=== PATIENT | female | born 1925 | race Caucasian/White ===

== ENCOUNTER 2016-05-29 07:17 | Emergency (ER) | payer MEDICARE, OTHER ==
[2016-05-29] MEDS ORDERED: Sodium Chloride 0.9% 10 ML Syringe FLUSH PRN (07:33)
[2016-05-29] MEDS ORDERED: Sodium Chloride 0.9% 500 ML IV SCH ×2 (07:45→09:15)
[2016-05-29 07:54] LABS: BASOPHILS PERCENT AUTO 0.6 % (0.2-1.2); EOSINOPHILS PERCENT AUTO 1.2 % (0.0-4.0); HEMATOCRIT 32.2 % (33.0-47.0); HEMOGLOBIN 8.9 g/dL (12.0-16.0); LYMPHOCYTES PERCENT AUTO 17.1 % (25.0-50.0); MEAN CORPUSCULAR HGB CONC 27.6 g/dL (32.0-36.0); MEAN CORPUSCULAR VOLUME 90.4 fL (78.0-93.0); NEUTROPHILS PERCENT AUTO 62.8 % (50.0-80.0); RDW CV 18.7 % (10.0-15.0); RED BLOOD CELL COUNT 3.56 x10^6/uL (4.00-5.50)
--- NOTE | 2016-05-29 08:18 | EDM.PDOC ---
ED HISTORY OF PRESENT ILLNESS - General Chief Complaint: Respiratory Problem Stated Complaint: decreased oxygen saturation Time Seen by Provider: 05/29/16 07:20 Source of Information: Reports: Patient, EMS, senior living records History Limitations: Reports: Altered mental status - History of Present Illness INITIAL COMMENTS - FREE TEXT/NARRATIVE: Patient arrives via EMS due to oxygen saturations in the 60's on 2 Liters at the [facility]. Placed on 5L and began to have saturations in the 90' s. She does have long medical history including HTN, dementia, anemia, atherosclerotic heart disease, heart failure(diastolic), hyperlipidemia, depression, atrial fibrillation, CERD, hypokalemia, pulmonary embolism. She denies feeling short of breath. History is difficult due to her being hard of hearing and confused due to her dementia/alzheimer's. She denies chest pain, abdominal pain, nausea or vomiting, no fever or chills. She is a do not resuscitate, and doctors with Dr. Fenton at [facility]. Denies alcohol, drug and tobacco use. senior living also reports increased confusion over the last month. Symptom Onset Date: 05/29/16 Symptom Onset Time: 06:30 Timing/Duration: Reports: Sudden onset Severity: moderate Location, General: Reports: chest Improves with: Reports: None Worsens with: Reports: Movement Associated Symptoms (General): Reports: confusion - Related Data Allergies/ADRs: Allergies Allergy/AdvReac Type Severity Reaction Status Date / Time atorvastatin calcium Allergy Cannot Verified 05/29/16 07:55 [From Lipitor] Remember codeine Allergy Cannot Verified 05/29/16 07:55 Remember doxycycline Allergy Cannot Verified 05/29/16 07:55 Remember fenofibrate nanocrystallized Allergy Cannot Verified 05/29/16 07:55 [From Tricor] Remember fenofibrate,micronized Allergy Cannot Verified 05/29/16 07:55 [From Tricor] Remember fluoxetine HCl [From Prozac] Allergy Cannot Verified 05/29/16 07:55 Remember niacin Allergy Cannot Verified 05/29/16 07:55 Remember nortriptyline [Nortriptyline] Allergy Cannot Verified 05/29/16 07:55 Remember Home Meds: Home Meds Acetaminophen [Tylenol] 650 mg PO Q4H PRN 07/22/13 [History] Cholecalciferol (Vitamin D3) [Vitamin D3] 2,000 unit PO DAILY 07/22/13 [History] Famotidine [Pepcid] 20 mg PO DAILY 07/22/13 [History] Loratadine [Claritin RediTabs] 10 mg PO DAILY 07/22/13 [History] Losartan Potassium 100 mg PO DAILY 07/22/13 [History] Sennosides/Docusate Sodium [Senna-Docusate Sodium] 2 each PO BID 07/22/13 [ History] Sertraline [Zoloft] 125 mg PO DAILY 07/22/13 [History] Simvastatin [Zocor] 20 mg PO BEDTIME 07/22/13 [History] ALPRAZolam [Xanax] 0.25 mg PO BID PRN 02/25/14 [History] Bisacodyl [Dulcolax] 5 mg PO ASDIRECTED PRN 02/25/14 [History] Melatonin 3 mg PO BEDTIME 02/25/14 [History] Bisacodyl 10 mg RECTAL DAILY PRN 01/10/15 [History] Calcium Carbonate [Tums] 1,000 mg PO QID PRN 01/10/15 [History] Polyethylene Glycol 3350 [MiraLAX] 17 gm PO DAILY PRN 01/10/15 [History] Acetaminophen [Tylenol] 325 mg PO BID 07/24/15 [History] Iron 0 mg PO BID 07/24/15 [History] Isosorbide Mononitrate [Imdur] 60 mg PO DAILY 07/24/15 [History] Warfarin [Coumadin] 2.5 mg PO ASDIRECTED 07/24/15 [History] guaiFENesin [Mucinex] 600 mg PO BID PRN 07/24/15 [History] Albuterol/Ipratropium [DuoNeb 3.0-0.5 MG/3 ML] 3 ml NEB TID #30 neb 08/02/15 [Rx ] Carvedilol [Coreg] 37.5 mg PO BID@0800,1800 #60 tablet 08/02/15 [Rx] Diltiazem [Cardizem] 30 mg PO Q8HR #90 tablet 08/02/15 [Rx] Furosemide [Lasix] 40 mg PO DAILY@1400 #30 tablet 08/02/15 [Rx] Furosemide [Lasix] 80 mg PO DAILY #30 tablet 03/07/16 [Rx] Nystatin [Mycostatin] 5 ml PO QID #40 cup 08/02/15 [Rx] Potassium Chloride [Klor-Con M20] 40 meq PO BIDMEALS #60 tab.er 08/02/15 [Rx] predniSONE 20 mg PO WITHBREAKFAST #5 tablet 08/02/15 [Rx] Past Medical History HEENT History: Reports: Allergic rhinitis, Cataract, Hard of hearing Cardiovascular History: Reports: Afib, CAD, Heart Failure, High cholesterol, Hypertension Respiratory History: Reports: PE Gastrointestinal History: Reports: Chronic constipation, GERD Genitourinary History: Reports: Urinary incontinence Psychiatric History: Reports: Anxiety, Dementia, Depression Endocrine/Metabolic History: Reports: Vitamin D deficiency, Other (see below) Other Endocrine/Metabolic History: hypokalemia Oncologic (Cancer) History: Reports: Colon - Past Surgical History HEENT Surgical History: Reports: Cataract surgery, Tonsillectomy GI Surgical History: Reports: Appendectomy, Colon, Colonoscopy Female Surgical History: Reports: Hysterectomy Oncologic Surgical History: Reports: Other (see below) Other Oncologic Surgeries/Procedures: colon Social & Family History - Family History Family Medical History: Noncontributory - Tobacco Use Smoking Status *Q: Never Smoker - Recreational Drug Use Recreational Drug Use: No ED ROS GENERAL - Review of Systems Review Of Systems: See Below Constitutional: Reports: no symptoms HEENT: Reports: No symptoms Respiratory: Reports: no symptoms Cardiovascular: Reports: No symptoms Endocrine: Reports: no symptoms GI/Abdominal: Reports: No symptoms : Reports: incontinence Musculoskeletal: Reports: no symptoms Skin: Reports: no symptoms Neurological: Reports: no symptoms Psychiatric: Reports: No symptoms Hematologic/Lymphatic: Reports: no symptoms Immunologic: Reports: no symptoms ED EXAM, GENERAL - Physical Exam Exam: See Below Exam Limited By: Altered mental status General Appearance: alert, no apparent distress Eye Exam: bilateral eye: EOMI, PERRL Ears: normal TMs Nose: normal inspection Throat/Mouth: Normal inspection, Normal oropharynx Head: atraumatic, normocephalic Neck: normal inspection, supple, non-tender, full range of motion Respiratory/Chest: decreased breath sounds, rales Cardiovascular: normal peripheral pulses, systolic murmur, irregularly irregular Peripheral Pulses: 1+: posterior tibial (L), posterior tibial (R), dorsalis pedis (L), dorsalis pedis (R) GI/Abdominal: normal bowel sounds, soft, non tender Back Exam: normal inspection Extremities: pedal edema (2+ bilateral with pitting) Neurological: alert, confused, slow to respond, memory loss recent events, other (Patient does know she is in the hospital and her birthdate. Unable to answer many other questions in a coherent fashion ) Psychiatric: normal affect, normal mood Skin Exam: Warm, Dry, Intact Lymphatic: no adenopathy Course - Vital Signs Last Recorded V/S: Last Vital Signs Temp 36.0 C 05/29/16 07:20 Pulse 84 05/29/16 08:30 Resp 16 05/29/16 08:30 BP 148/84 H 05/29/16 08:30 Pulse Ox 99 05/29/16 08:30 - Orders/Labs/Meds Orders: Active Orders 24 hr Category Date Time Status Patient Status [ADT] Routine ADT 05/29/16 08:50 Ordered EKG Documentation Completion [RC] URGENT Care 05/29/16 07:31 Active Mtz Catheter Insertion [Insert Urinary Catheter] [OM. Care 05/29/16 09:00 Ordered PC] Q24H Urinary Catheter Assessment [RC] ASDIRECTED Care 05/29/16 08:56 Ordered Chest 1V Frontal [CR] Stat Exams 05/29/16 07:31 Taken ABG [BLOOD GAS ARTERIAL] [BG] Stat Lab 05/29/16 08:45 Ordered D-DIMER QUANTITATIVE [COAG] Stat Lab 05/29/16 08:50 Ordered INR,PT,PROTHROMBIN TIME [COAG] Stat Lab 05/29/16 07:40 Received UA W/MICROSCOPIC [URIN] Stat Lab 05/29/16 07:33 Uncollected Sodium Chloride 0.9% [Normal Saline] 500 ml Med 05/29/16 07:45 Active IV ASDIRECTED Sodium Chloride 0.9% [Saline Flush] Med 05/29/16 07:33 Active 10 ml FLUSH ASDIRECTED PRN Saline Lock Insert [OM.PC] Routine Oth 05/29/16 07:33 Ordered Medication Orders Sodium Chloride (Normal Saline) 500 mls @ 100 mls/hr IV ASDIRECTED MARISELA Last Admin: 05/29/16 08:26 Dose: 100 mls/hr Sodium Chloride (Saline Flush) 10 ml FLUSH ASDIRECTED PRN PRN Reason: Keep Vein Open Last Admin: 05/29/16 08:27 Dose: 10 ml Labs: Laboratory Tests 05/29/16 05/29/16 Range/Units 07:40 07:55 WBC 3.3 L (4.0-10.0) x10^3/uL RBC 3.56 L (4.00-5.50) x10^6/uL Hgb 8.9 L (12.0-16.0) g/dL Hct 32.2 L (33.0-47.0) % MCV 90.4 (78.0-93.0) fL MCH 25.0 L (26.0-32.0) pg MCHC 27.6 L (32.0-36.0) g/dL RDW Coeff of Fabricio 18.7 H (10.0-15.0) % Plt Count 154 (130-400) x10^3/uL Neut % (Auto) 62.8 (50.0-80.0) % Lymph % (Auto) 17.1 L (25.0-50.0) % [place] % (Auto) 18.3 H (2.0-11.0) % Eos % (Auto) 1.2 (0.0-4.0) % Baso % (Auto) 0.6 (0.2-1.2) % Sodium 149 H (136-145) mmol/L Potassium 4.0 (3.5-5.1) mmol/L Chloride 107 (98-107) mmol/L Carbon Dioxide 36 H (21-32) mmol/L BUN 21 H (7-18) mg/dL Creatinine 1.1 H (0.55-1.02) mg/dL Est Cr Clr Drug Dosing TNP Estimated GFR (MDRD) 47 Glucose 108 H (74-106) mg/dL Calcium 8.6 (8.5-10.1) mg/dL Corrected Calcium 8.92 (8.5-10.1) mg/dL Total Bilirubin 0.6 (0.2-1.0) mg/dL AST 17 (15-37) U/L ALT 22 (14-59) U/L Alkaline Phosphatase 89 (46-116) U/L Creatine Kinase 26 (26-192) U/L Creatine Kinase Index 2.7 (0.0-4.0) % CK-MB (CK-2) 0.7 (0.0-3.6) ng/mL Troponin I < 0.017 (<=0.056) ng/mL C-Reactive Protein 0.7 (<=0.9) mg/dL B-Natriuretic Peptide 2633 H (<=450) pg/mL Total Protein 7.4 (6.4-8.2) g/dL Albumin 3.6 (3.4-5.0) g/dL Globulin 3.8 Albumin/Globulin Ratio 0.95 Meds: Medications Generic Name Dose Route Start Last Admin Trade Name Freq PRN Reason Stop Dose Admin Sodium Chloride 500 mls @ 100 mls/hr 05/29/16 07:45 05/29/16 08:26 Normal Saline IV 100 mls/hr ASDIRECTED MARISELA Administration Sodium Chloride 10 ml 05/29/16 07:33 05/29/16 08:27 Saline Flush FLUSH 10 ml ASDIRECTED PRN Administration Keep Vein Open Departure - Departure Time of Disposition: 09:04 Disposition: Admitted As Inpatient 68 Condition: fair Clinical Impression: Anemia Congestive heart failure Qualifiers: Congestive heart failure type: unspecified congestive heart failure type Congestive heart failure chronicity: acute on chronic Qualified Code(s): I50.9 - Heart failure, unspecified - Problem List & Annotations (1) Anemia SNOMED Code(s): 818808485 Code(s): D64.9 - ANEMIA, UNSPECIFIED Status: Acute Priority: Low Current Visit: Yes (2) Congestive heart failure SNOMED Code(s): 37433334 Code(s): I50.9 - HEART FAILURE, UNSPECIFIED Status: Acute Priority: High Current Visit: Yes Qualifiers: Congestive heart failure type: diastolic Congestive heart failure chronicity: acute on chronic Qualified Code(s): I50.33 - Acute on chronic diastolic (congestive) heart failure - Problem List Review Problem List Initiated/Reviewed/Updated: Yes - My Orders Last 24 Hours: My Active Orders 05/29/16 07:31 EKG Documentation Completion [RC] URGENT Chest 1V Frontal [CR] Stat 05/29/16 07:33 UA W/MICROSCOPIC [URIN] Stat Sodium Chloride 0.9% [Saline Flush] 10 ml FLUSH ASDIRECTED PRN Saline Lock Insert [OM.PC] Routine 05/29/16 07:40 INR,PT,PROTHROMBIN TIME [COAG] Stat 05/29/16 07:45 Sodium Chloride 0.9% [Normal Saline] 500 ml IV ASDIRECTED 05/29/16 08:45 ABG [BLOOD GAS ARTERIAL] [BG] Stat 05/29/16 08:50 Patient Status [ADT] Routine D-DIMER QUANTITATIVE [COAG] Stat 05/29/16 08:56 Urinary Catheter Assessment [RC] ASDIRECTED 05/29/16 09:00 Mtz Catheter Insertion [Insert Urinary Catheter] [OM.PC] Q24H - Assessment/Plan Last 24 Hours: My Active Orders 05/29/16 07:31 EKG Documentation Completion [RC] URGENT Chest 1V Frontal [CR] Stat 05/29/16 07:33 UA W/MICROSCOPIC [URIN] Stat Sodium Chloride 0.9% [Saline Flush] 10 ml FLUSH ASDIRECTED PRN Saline Lock Insert [OM.PC] Routine 05/29/16 07:40 INR,PT,PROTHROMBIN TIME [COAG] Stat 05/29/16 07:45 Sodium Chloride 0.9% [Normal Saline] 500 ml IV ASDIRECTED 05/29/16 08:45 ABG [BLOOD GAS ARTERIAL] [BG] Stat 05/29/16 08:50 Patient Status [ADT] Routine D-DIMER QUANTITATIVE [COAG] Stat 05/29/16 08:56 Urinary Catheter Assessment [RC] ASDIRECTED 05/29/16 09:00 Mtz Catheter Insertion [Insert Urinary Catheter] [OM.PC] Q24H Plan: Admission to acute/inpatient. Dr. Weston to assume care of patient. She has been notified and report given.
[2016-05-29 08:38] LABS: INR 1.8 (2.0-3.5); PROTHROMBIN TIME 20.3 SEC (10.0-12.8)
[2016-05-29 08:39] LABS: A/G RATIO 0.95; ALBUMIN 3.6 g/dL (3.4-5.0); ALKALINE PHOSPHATASE 89 U/L (46-116); B-TYPE NATRIURETIC PEPTIDE,BNP 2633 pg/mL (<=450); BILIRUBIN TOTAL 0.6 mg/dL (0.2-1.0); C-REACTIVE PROTEIN 0.7 mg/dL (<=0.9); CALCIUM 8.6 mg/dL (8.5-10.1); CHLORIDE,CL 107 mmol/L (98-107); CORRECTED CALCIUM 8.92 mg/dL (8.5-10.1); CREATININE 1.1 mg/dL (0.55-1.02); ESTIMATED GFR 47; GLUCOSE RANDOM 108 mg/dL (74-106)
[2016-05-29 08:42] LABS: MONOCYTES PERCENT AUTO 18.3 % (2.0-11.0)
[2016-05-29 08:43] LABS: CKMB 0.7 ng/mL (0.0-3.6); TROPONIN I < 0.017 ng/mL (<=0.056)
[2016-05-29 08:48] VITALS: BP 148/84
[2016-05-29 09:05] LABS: HCO3 ARTERIAL,ISTAT 35 mmol/L (22-26); O2 SATURATION ARTERIAL,ISTAT 50 % (95-98); PCO2 ARTERIAL,ISTAT 58 mmHG (35-45); PH ARTERIAL,ISTAT 7.385 (7.35-7.45); PO2 ARTERIAL,ISTAT 28 mmHG (80-105); TCO2 ARTERIAL,ISTAT 37 mmol/L (23-27)
== END 2016-05-29 09:16 | disposition critical access hospital (66) ==
LOC: VM.ED 07:17
DX: I50.9 Heart failure, unspecified (principal); D64.9 Anemia, unspecified; I25.10 Atherosclerotic heart disease of native coronary artery without angina pectoris; E78.00 Pure hypercholesterolemia, unspecified; K21.9 Gastro-esophageal reflux disease without esophagitis; I10 Essential (primary) hypertension; Z90.710 Acquired absence of both cervix and uterus; Z88.8 Allergy status to other drugs, medicaments and biological substances; Z88.5 Allergy status to narcotic agent; Z79.899 Other long term (current) drug therapy; Z79.01 Long term (current) use of anticoagulants
CPT/HCPCS: 36415; 71010; 80053; 82550; 82553; 82803; 83880; 84484; 85025; 85379; 85610; 86140; 93005; 96360; 99285; J7040; J7050

== ENCOUNTER 2016-05-29 08:50 | Inpatient (IN) | payer MEDICARE, OTHER ==
[2016-05-29] MEDS ORDERED: Furosemide 20 MG/2 ML VIAL IVPUSH STA (09:45)
[2016-05-29] MEDS ORDERED: Sodium Chloride 0.9% 10 ML Syringe FLUSH PRN (09:54)
[2016-05-29 10:08] LABS: APPEARANCE,URINE CLEAR (CLEAR); BILIRUBIN,URINE NEGATIVE (NEGATIVE); GLUCOSE,URINE NEGATIVE (NEGATIVE); KETONES,URINE NEGATIVE (NEGATIVE); LEUKOCYTE ESTERASE,URINE NEGATIVE (NEGATIVE); NITRITE,URINE NEGATIVE (NEGATIVE); OCCULT BLOOD,URINE NEGATIVE (NEGATIVE); PH,URINE 7.5 (5.0-8.0); PROTEIN,URINE 30 mg/dL (NEGATIVE); UROBILINOGEN,URINE 0.2 EU/dL (0.2)
--- NOTE | 2016-05-29 10:12 | PCM.HP ---
H&P History of Present Illness - General Date of Service: 05/29/16 Admit Problem/Dx: Admission Diagnosis/Problem Admission Diagnosis/Problem Congestive heart failure Source of Information: detention records History Limitations: Reports: Altered mental status - History of Present Illness Initial Comments - Free Text/Narative: Mrs. Lay is an 89 yo female who was brought to the ED for further evaluation and management of shortness of breath and hypoxia first noticed this morning. She has underlying dementia and has reportedly been more confused for the last 2 weeks; therefore, the patient is unable to provide any history this morning. Apart from the confusion, she has had no other symptoms up until this morning. She was found in bed with oxygen saturations in the 60s. She was also complaining that she could not get air. I was called about this and recommended the patient be evaluated in the ED. While in the ED, she denied any chest pain or shortness of breath and she was saturating in the upper 90s on 3 L. Upon arrival to the floor, she states she is having some mild shortness of breath but no chest pain. Her oxygen saturations remain adequate on 3L. ROS is otherwise limited by her mental status. There is no mention of any recent falls or infection symptoms. - Related Data Allergies/Adverse Reactions: Allergies Allergy/AdvReac Type Severity Reaction Status Date / Time atorvastatin calcium Allergy Cannot Verified 05/29/16 07:55 [From Lipitor] Remember codeine Allergy Cannot Verified 05/29/16 07:55 Remember doxycycline Allergy Cannot Verified 05/29/16 07:55 Remember fenofibrate nanocrystallized Allergy Cannot Verified 05/29/16 07:55 [From Tricor] Remember fenofibrate,micronized Allergy Cannot Verified 05/29/16 07:55 [From Tricor] Remember fluoxetine HCl [From Prozac] Allergy Cannot Verified 05/29/16 07:55 Remember niacin Allergy Cannot Verified 05/29/16 07:55 Remember nortriptyline [Nortriptyline] Allergy Cannot Verified 05/29/16 07:55 Remember Home Medications: Home Meds Cholecalciferol (Vitamin D3) [Vitamin D3] 2,000 unit PO DAILY 07/22/13 [History] Famotidine [Pepcid] 20 mg PO DAILY 07/22/13 [History] Loratadine [Claritin RediTabs] 10 mg PO DAILY 07/22/13 [History] Losartan Potassium 100 mg PO DAILY 07/22/13 [History] Sennosides/Docusate Sodium [Senna-Docusate Sodium] 1 each PO BID 07/22/13 [ History] Sertraline [Zoloft] 50 mg PO DAILY 07/22/13 [History] Simvastatin [Zocor] 20 mg PO BEDTIME 07/22/13 [History] Bisacodyl [Dulcolax] 5 mg PO ASDIRECTED PRN 02/25/14 [History] Melatonin 3 mg PO BEDTIME 02/25/14 [History] Bisacodyl 10 mg RECTAL Q72H PRN 01/10/15 [History] Polyethylene Glycol 3350 [MiraLAX] 17 gm PO DAILY 01/10/15 [History] Acetaminophen [Tylenol] 325 mg PO BID 07/24/15 [History] Isosorbide Mononitrate [Imdur] 60 mg PO DAILY 07/24/15 [History] Warfarin [Coumadin] 2.5 mg PO ASDIRECTED 07/24/15 [History] Carvedilol [Coreg] 37.5 mg PO BID@0800,1800 #60 tablet 08/02/15 [Rx] Furosemide [Lasix] 40 mg PO DAILY@1400 #30 tablet 08/02/15 [Rx] Furosemide [Lasix] 80 mg PO DAILY #30 tablet 08/02/15 [Rx] Potassium Chloride [Klor-Con M20] 40 meq PO BIDMEALS #60 tab.er 08/02/15 [Rx] Albuterol/Ipratropium [DuoNeb 3.0-0.5 MG/3 ML] 3 ml NEB ASDIRECTED 05/29/16 [ History] Diltiazem [Cardizem] 30 mg PO Q12H 05/29/16 [History] Magnesium Hydroxide [Milk of Magnesia] 30 ml PO DAILY PRN 05/29/16 [History] Nystatin [Nystatin Crm] 15 gm TOP BID 05/29/16 [History] Warfarin [Coumadin] 1.25 mg PO ASDIRECTED 05/29/16 [History] risperiDONE [Risperdal] 1 mg PO DAILY 05/29/16 [History] Past Medical History HEENT History: Reports: Allergic rhinitis, Cataract, Hard of hearing Cardiovascular History: Reports: Afib, CAD, Heart Failure, High cholesterol, Hypertension Respiratory History: Reports: PE Gastrointestinal History: Reports: Chronic constipation, Colon polyp, GERD Genitourinary History: Reports: Urinary incontinence Musculoskeletal History: Reports: Other (see below) Other Musculoskeletal History: osteopenia Neurological History: Reports: Alzheimers disease, Other (see below) Other Neuro History: essential tremor Psychiatric History: Reports: Anxiety, Dementia, Depression Endocrine/Metabolic History: Reports: Vitamin D deficiency, Other (see below) Other Endocrine/Metabolic History: hypokalemia Hematologic History: Reports: Anemia, Iron deficiency Oncologic (Cancer) History: Reports: Colon Dermatologic History: Reports: None - Infectious Disease History Infectious Disease History: Reports: None - Past Surgical History HEENT Surgical History: Reports: Cataract surgery, Tonsillectomy GI Surgical History: Reports: Colon, Colonoscopy Female Surgical History: Reports: Hysterectomy Oncologic Surgical History: Reports: Other (see below) (colon resection) Other Oncologic Surgeries/Procedures: colon Social & Family History - Family History Family Medical History: Unobtainable (noted below per EMR) Oncologic: Reports: Breast, Lung, Lymphoma, Prostate, Skin - Tobacco Use Smoking Status *Q: Never Smoker - Alcohol Use Alcohol Use History: No - Recreational Drug Use Recreational Drug Use: No - Living Situation & Occupation Living situation: Reports: extended care facility ( also lives there) H&P Review of Systems - Review of Systems: Review Of Systems: Unable To Obtain (due to altered mental status) Exam - Exam Exam: See Below - Vital Signs Vital Signs: Last Vital Signs Temp 36.3 C 05/29/16 09:42 Pulse 102 H 05/29/16 09:42 Resp 24 H 05/29/16 09:42 BP 172/114 H 05/29/16 09:42 Pulse Ox 95 05/29/16 09:57 Weight: 81.511 kg - Exam Quality Assessment: supplemental oxygen General: other (patient is drowsy but does alert to voice). No: oriented, cooperative, mild distress HEENT: Conjunctiva clear, Hearing intact, Pupils equal, Pupils reactive Neck: supple, trachea midline. No: lymphadenopathy Lungs: Crackles (at the bases bilaterally), Other (patient is abdominal breathing but not in distress otherwise; improved while relaxed and resting). No: Wheezing Cardiovascular: normal S1, normal S2, irregular rhythm. No: systolic murmur, diastolic murmur Abdomen: normal bowel sounds, soft, tenderness (suprapubic). No: organomegaly, peritoneal signs, distention, guarding, rigidity, rebound Extremities: normal inspection, normal pulses, edema (2+ to the knees bilaterally) Skin: warm, dry, intact Neurological: other (drowsy but alerts to voice; not oriented to person, place, or time). No: focal deficit *Q Meaningful Use (ADM) - VTE *Q VTE Criteria *Q: VTE Anticoagulation Contraindications: Med/tx not indicated/need - Stroke *Q Stroke Criteria *Q: - AMI *Q AMI Criteria *Q: - Problem List (1) Congestive heart failure SNOMED Code(s): 58540051 ICD Code: I50.9 - HEART FAILURE, UNSPECIFIED Status: Acute Priority: High Current Visit: No Problem Details: - Severe cardiomegaly seen on CXR. The patient has had this before but her BNP is also elevated compared to her prior readings and she has significant lower extremity edema. - Therefore, I suspect she does have acute on chronic CHF. - Will give a dose of 20 mg IV lasix this morning. Plan to repeat a dose of 40 mg IV 6 hours later vs. repeat 20 mg dose depending on urine output after initial dose. - Hold home doses of lasix. - Monitor I/O closely. - Cause for heart failure is unclear. She has no evidence of infection (normal WBC, negative u/a, no pneumonia seen on CXR), atrial fibrillation has been controlled as far as I am able to tell, no evidence of ischemia on ECG or by troponin, no known major valvular disease and no obvious murmur on exam today, and patient just had a normal TSH checked on 05/17. Qualifiers: Congestive heart failure type: diastolic Congestive heart failure chronicity: acute on chronic Qualified Code(s): I50.33 - Acute on chronic diastolic (congestive) heart failure (2) Hypoxia SNOMED Code(s): 359837889, 038454289 ICD Code: R09.02 - HYPOXEMIA Status: Acute Current Visit: Yes Problem Details: - Patient is chronically on 2L of oxygen via NC; however, she was found to have O2 saturations in the 60s when first evaluated this morning. - ABG reviewed. Lab staff believes they got a VBG instead of an ABG. Redraw was not successful and is likely not indicated at this time given stability of respiratory rate and oxygen saturations on 3L nasal cannula. - Likely secondary to CHF vs. possibly MARY. Unclear how long she was in the 60s for her oxygen saturations as she was found that way this morning. Other causes would be the same as listed above under CHF. (3) Delirium SNOMED Code(s): 0090453 ICD Code: R41.0 - DISORIENTATION, UNSPECIFIED Status: Acute Current Visit : Yes Problem Details: - Staff report worsening confusion over the past 2 weeks; patient was quite confused this morning. - Suspect this is secondary to hypoxia given saturations in the 60s when checked initially this morning; unclear how long she was that low and what improvement in mentation we will see. - Other causes that are unlikely based on evaluation thus far: PE (negative d- dimer), infection (WBC at baseline, no pneumonia on CXR, u/a not consistent with infection), electrolyte dysturbance, kidney failure, liver failure (normal CMP), and thyroid disease (normal TSH 05/17). - Consider hypertension as the cause but with her systolic still <180 this is less likely. - Intracranial process also considered and a CT head will be obtained when able. (4) Atrial fibrillation SNOMED Code(s): 92326346 ICD Code: I48.91 - UNSPECIFIED ATRIAL FIBRILLATION Status: Chronic Current Visit: Yes Problem Details: - ECG shows atrial fibrillation with normal ventricular response. - Continue home medications. - INR is 1.8; although this is slightly subtherapeutic, will not bridge at this time or do VTE prophylaxis. Will continue home warfarin dosing given likelihood to increase if patient's intake remains poor. Recheck INR tomorrow. Qualifiers: Atrial fibrillation type: paroxysmal Qualified Code(s): I48.0 - Paroxysmal atrial fibrillation (5) Hypertension SNOMED Code(s): 74235078 ICD Code: I10 - ESSENTIAL (PRIMARY) HYPERTENSION Status: Chronic Current Visit: Yes Problem Details: - BP was elevated in the ED and upon initial arrival to the floor. - Now that the patient is resting comfortably in bed, her BP is much better. - Will give her coreg given risk for rebound if this is not given. Had planned to also give the Imdur but her current CP is 120/72; therefore, will hold off on that for now. - Will schedule all other BP meds for this evening and tomorrow morning. Qualifiers: Hypertension type: essential hypertension Qualified Code(s): I10 - Essential (primary) hypertension (6) Coronary artery disease SNOMED Code(s): 35001814 ICD Code: I25.10 - ATHSCL HEART DISEASE OF [place] CORONARY ARTERY W/O ANG PCTRS Status: Chronic Current Visit: Yes Problem Details: - No current symptoms of cardiac ischemia. - ECG was unchanged from prior and troponin negative. - Continue home medications. Qualifiers: Coronary Disease-Associated Artery/Lesion type: [place] artery [place] vs. transplanted heart: [place] heart Associated angina: angina presence unspecified Qualified Code(s): I25.10 - Atherosclerotic heart disease of [place] coronary artery without angina pectoris (7) History of pulmonary embolism SNOMED Code(s): 578569768 ICD Code: Z86.711 - PERSONAL HISTORY OF PULMONARY EMBOLISM Status: Chronic Current Visit: Yes Problem Details: - As above, d-dimer negative; therefore, no need to do CTA to evaluate for any acute PE. (8) Hyperlipidemia SNOMED Code(s): 36947807 ICD Code: E78.5 - HYPERLIPIDEMIA, UNSPECIFIED Status: Chronic Current Visit: Yes Problem Details: - Continue home medications. Qualifiers: Hyperlipidemia type: unspecified Qualified Code(s): E78.5 - Hyperlipidemia , unspecified (9) Depression SNOMED Code(s): 30449281 ICD Code: F32.9 - MAJOR DEPRESSIVE DISORDER, SINGLE EPISODE, UNSPECIFIED Status: Chronic Current Visit: Yes Problem Details: - Continue home medications. Qualifiers: Depression Type: major depressive disorder Major depression recurrence: recurrent Active/Remission status: in full remission Qualified Code(s): F33.42 - Major depressive disorder, recurrent, in full remission (10) Anxiety SNOMED Code(s): 14948989 ICD Code: F41.9 - ANXIETY DISORDER, UNSPECIFIED Status: Chronic Current Visit: Yes Problem Details: - Continue home medications. (11) Alzheimer's dementia SNOMED Code(s): 88588118 ICD Code: G30.9 - ALZHEIMER'S DISEASE, UNSPECIFIED Status: Chronic Current Visit: Yes Problem Details: - Continue home medications. Qualifiers: Alzheimer's disease onset: late-onset Dementia behavioral disturbance: without behavioral disturbance Qualified Code(s): G30.1 - Alzheimer's disease with late onset; F02.80 - Dementia in other diseases classified elsewhere without behavioral disturbance (12) Colon cancer SNOMED Code(s): 725773499 ICD Code: C18.9 - MALIGNANT NEOPLASM OF COLON, UNSPECIFIED Status: Chronic Current Visit: Yes Problem Details: - In remission. - CT head will be obtained to evaluate for intracranial causes of delirium, and metastatic cancer would need to be considered in this differential. Qualifiers: Colon location: unspecified part of colon Qualified Code(s): C18.9 - Malignant neoplasm of colon, unspecified (13) Anemia SNOMED Code(s): 955128263 ICD Code: D64.9 - ANEMIA, UNSPECIFIED Status: Chronic Current Visit: Yes Problem Details: - Hemoglobin is quite low; however, this is stable from her prior checks. - Will not work-up anemia during this hospital stay. - Monitor daily. Qualifiers: Anemia type: iron deficiency Iron deficiency anemia type: unspecified iron deficiency Qualified Code(s): D50.9 - Iron deficiency anemia, unspecified (14) GERD (gastroesophageal reflux disease) SNOMED Code(s): 955769004 ICD Code: K21.9 - GASTRO-ESOPHAGEAL REFLUX DISEASE WITHOUT ESOPHAGITIS Status: Chronic Current Visit: Yes Problem Details: - Continue home medications. Qualifiers: Esophagitis presence: esophagitis presence not specified Qualified Code(s) : K21.9 - Gastro-esophageal reflux disease without esophagitis (15) Yeast dermatitis SNOMED Code(s): 86628509 ICD Code: B37.2 - CANDIDIASIS OF SKIN AND NAIL Status: Chronic Current Visit: Yes Problem Details: - Continue home medications. Problem List Initiated/Reviewed/Updated: Yes Orders Last 24hrs: Active Orders 24 hr Category Date Time Status Patient Status [ADT] Routine ADT 05/29/16 09:54 Active Cardiac Monitoring [RC] 06,10,14,18,22,02 Care 05/29/16 09:57 Active Mtz Catheter Insertion [Insert Urinary Catheter] [OM. Care 05/29/16 10:00 Ordered PC] Q24H Notify Provider Vital Signs [RC] ASDIRECTED Care 05/29/16 09:57 Active Oxygen Therapy [RC] 08,20 Care 05/29/16 09:54 Active Pulse Oximetry [RC] 06,10,14,18,22,02 Care 05/29/16 09:57 Active Up With Assistance [RC] ASDIRECTED Care 05/29/16 09:54 Active Urinary Catheter Assessment [RC] 08,20 Care 05/29/16 09:49 Active VTE/DVT Education [RC] .PRN Care 05/29/16 09:54 Active Vital Signs [RC] 06,10,14,18,22,02 Care 05/29/16 09:54 Active Regular Diet [DIET] Diet 05/29/16 Lunch Active Head wo Cont [CT] Timed Exams 05/29/16 13:00 Ordered URINALYSIS W/MICROSCOPIC [UA W/MICROSCOPIC] [URIN] Lab 05/29/16 09:50 Ordered Routine Acetaminophen [Tylenol] Med 05/29/16 09:54 Ordered 650 mg PO Q4H PRN Sodium Chloride 0.9% [Saline Flush] Med 05/29/16 09:54 Ordered 10 ml FLUSH ASDIRECTED PRN Anticoagulation Contraindications VTE [AST] Per Unit Oth 05/29/16 09:54 Ordered Routine Saline Lock Insert [OM.PC] Routine Oth 05/29/16 09:54 Ordered Resuscitation Status Routine Resus Stat 05/29/16 09:54 Ordered Medication Orders Acetaminophen (Tylenol) 650 mg PO Q4H PRN PRN Reason: Pain (Mild 1-3)/fever Sodium Chloride (Saline Flush) 10 ml FLUSH ASDIRECTED PRN PRN Reason: Keep Vein Open Assessment/Plan Comment:: 89 yo female admitted with shortness of breath, hypoxia, and delirium all felt to be related to CHF exacerbation. She will get IV lasix dosing today. All other home medications will be continued. See above for further work-up of causes for admission. Telemetry monitoring. Have discussed the patient's admission with her dual healthcare [employer] attorney, Chano and Yvonne. Both are in agreement that the patient is DNR/DNI and that they would not like noninvasive ventilatory support with BiPap/CPAP if her respiratory status were to worsen. Therefore, the patient is made DNR/DNI/comfort measures in accordance with these wishes. She does not require VTE prophylaxis due to being on warfarin. INR is mildly subtherapeutic at 1.8 but she will not require any bridging. Anticipate she will be admitted for diuresis for 48-72 hours.
[2016-05-29 10:35] LABS: BACTERIA,URINE FEW /HPF (NEGATIVE); MUCUS,URINE NOT SEEN /LPF (NEGATIVE); RBC,URINE 0-5 /HPF (NOT SEEN); WBC,URINE 0-5 /HPF (NOT SEEN)
[2016-05-29] MEDS ORDERED: Bisacodyl 10 MG Supp RECTAL PRN (10:49)
[2016-05-29] MEDS ORDERED: Bisacodyl 5 MG Tab PO PRN (10:49)
[2016-05-29] MEDS ORDERED: Albuterol/Ipratropium 3.0-0.5 MG/3 ML Neb Soln NEB SCH (11:00)
[2016-05-29] MEDS ORDERED: Magnesium Hydroxide 400 MG/5 ML Susp 30 ML Cup PO PRN (11:05)
[2016-05-29] MEDS ORDERED: Isosorbide Mononitrate 30 MG Tab.ER PO SCH (11:11)
[2016-05-29] MEDS ORDERED: Isosorbide Mononitrate 30 MG Tab.ER PO STA (11:17)
[2016-05-29] MEDS: risperiDONE 1 MG Tab PO SCH (11:43)
[2016-05-29] MEDS: Carvedilol 12.5 MG Tab PO SCH ×2 (11:43→18:07)
[2016-05-29] MEDS: Potassium Chloride 20 MEQ Tab.ER PO SCH (18:07)
[2016-05-29] MEDS: Acetaminophen 325 MG Tab PO PRN (18:09)
[2016-05-29] MEDS: Nystatin Crm 30 GM Tube TOP SCH (19:40)
[2016-05-29] MEDS: Simvastatin 20 MG Tab PO SCH (19:41)
[2016-05-29] MEDS: Melatonin 3 MG Tab PO SCH (19:42)
[2016-05-29] MEDS ORDERED: Warfarin 2.5 MG Tab PO SCH (20:00)
[2016-05-29] MEDS ORDERED: Furosemide 40 MG/4 ML VIAL IVPUSH ONE (22:35)
[2016-05-30] MEDS: risperiDONE 1 MG Tab PO SCH ×2 (03:32→07:55)
[2016-05-30 06:38] LABS: BASOPHILS PERCENT AUTO 0.8 % (0.2-1.2); EOSINOPHILS PERCENT AUTO 1.4 % (0.0-4.0); HEMATOCRIT 32.2 % (33.0-47.0); HEMOGLOBIN 8.8 g/dL (12.0-16.0); LYMPHOCYTES PERCENT AUTO 14.2 % (25.0-50.0); MEAN CORPUSCULAR HEMOGLOBIN 24.9 pg (26.0-32.0); MEAN CORPUSCULAR HGB CONC 27.3 g/dL (32.0-36.0); MEAN CORPUSCULAR VOLUME 91.2 fL (78.0-93.0); MONOCYTES PERCENT AUTO 14.2 % (2.0-11.0); NEUTROPHILS PERCENT AUTO 69.4 % (50.0-80.0); RDW CV 18.4 % (10.0-15.0); RED BLOOD CELL COUNT 3.53 x10^6/uL (4.00-5.50)
[2016-05-30 06:58] LABS: CALCIUM 8.2 mg/dL (8.5-10.1); EST CRCL DRUG DOSING (CG) 35.7 mL/min
[2016-05-30 06:59] LABS: INR 2.1 (2.0-3.5); PROTHROMBIN TIME 23.4 SEC (10.0-12.8)
[2016-05-30] MEDS: Carvedilol 12.5 MG Tab PO SCH ×2 (07:53→17:19)
[2016-05-30] MEDS: Polyethylene Glycol 3350 Powder 17 GM Packet PO SCH (07:53)
[2016-05-30] MEDS: Furosemide 80 MG Tab PO SCH (07:53)
[2016-05-30] MEDS: Loratadine 10 MG Tab PO SCH (07:53)
[2016-05-30] MEDS: Isosorbide Mononitrate 30 MG Tab.ER PO SCH (07:54)
[2016-05-30] MEDS: Losartan 50 MG Tab PO SCH (07:54)
[2016-05-30] MEDS: Cholecalciferol (Vitamin D3) 1,000 Unit Tab PO SCH (07:54)
[2016-05-30] MEDS: Famotidine 20 MG Tab PO SCH (07:54)
[2016-05-30] MEDS: Potassium Chloride 20 MEQ Tab.ER PO SCH ×2 (07:54→17:18)
[2016-05-30] MEDS: Nystatin Crm 30 GM Tube TOP SCH ×2 (07:56→21:41)
[2016-05-30] MEDS ORDERED: Sertraline 100 MG Tab PO SCH (08:00)
[2016-05-30] MEDS ORDERED: Furosemide 40 MG/4 ML VIAL IVPUSH ONE (08:10)
--- NOTE | 2016-05-30 08:48 | PN ---
Progress Note for LOGAN HENRY Date: 05/30/2016 Room #: VM.215 SUBJECTIVE: The patient was noted to be still short of breath last night. She was also noted to be a little bit agitated and so did require an earlier dose of Risperdal. She is still feeling a little short of breath this morning. The patient has diuresed quite a bit. She denies any chest pain. OBJECTIVE: Vital Signs: Her weight is 80.4 kg today which is down 1.1 kilos from admission. Her pulse has been in the 90s to 100s. Her blood pressure is 159/92, respiratory rate is 24, sats are 92 on 2 L. General: The patient does recognize me. She starts talking no nonsensically. She does appear a little winded with expiration. Heart: Slightly tachycardic. Lungs: Have inspiratory crackles on bases. Abdomen: Soft. Extremities: Trace edema. Genitourinary: Mtz catheter is draining yellow urine. LABORATORY DATA: Her lab today shows that her white blood cell count is 3.3, hemoglobin has dropped to 8.8, platelets are 122 with 69 segs, 14 lymphocytes, 14 monos. INR is 2.1. Sodium is 148, potassium 3.7, creatinine 1.0, GFR 52, calcium 8.2. Urine came back normal. IMPRESSION: 1. Acute exacerbation of chronic congestive heart failure. 2. Dementia with increased confusion. 3. Hypoxemia secondary to congestive heart failure. 4. History of colon cancer. 5. Chronic atrial fibrillation. PLAN: We will increase the patient's diltiazem to get her pulse to slow down to see if this helps with her heart being more efficient. She is on maximum doses of carvedilol now. We will give her another dose of IV Lasix push. We will do a chest x-ray today. Tomorrow, we will check her magnesium, electrolytes, her hemoglobin. If her hemoglobin dropped further, she may require blood transfusion as that may be affecting her heart failure. The patient's prognosis right now is somewhat guarded due to her multiple comorbidities and we will find out her maximum amount of oxygen that she also requires as well. GM05/30/2016 08:19:06 MODL: 05/30/2016 08:43:50 /[id number]
[2016-05-30] MEDS ORDERED: Furosemide 40 MG Tab PO SCH (14:00)
[2016-05-30] MEDS ORDERED: Sodium Chloride 0.9% 500 ML IV ONE (14:26)
[2016-05-30] MEDS: Simvastatin 20 MG Tab PO SCH (21:39)
[2016-05-30] MEDS: Melatonin 3 MG Tab PO SCH (21:40)
[2016-05-30] MEDS: Warfarin 2.5 MG Tab PO SCH (21:40)
[2016-05-30] MEDS: LORazepam 0.5 MG Tab PO PRN (23:22)
[2016-05-31] MEDS: LORazepam 0.5 MG Tab PO PRN ×2 (05:45→17:47)
[2016-05-31 06:47] LABS: BASOPHILS PERCENT AUTO 0.6 % (0.2-1.2); EOSINOPHILS PERCENT AUTO 1.2 % (0.0-4.0); HEMATOCRIT 32.2 % (33.0-47.0); HEMOGLOBIN 8.6 g/dL (12.0-16.0); LYMPHOCYTES PERCENT AUTO 15.9 % (25.0-50.0); MEAN CORPUSCULAR HEMOGLOBIN 24.9 pg (26.0-32.0); MEAN CORPUSCULAR HGB CONC 26.7 g/dL (32.0-36.0); MEAN CORPUSCULAR VOLUME 93.3 fL (78.0-93.0); MONOCYTES PERCENT AUTO 15.6 % (2.0-11.0); NEUTROPHILS PERCENT AUTO 66.7 % (50.0-80.0); RED BLOOD CELL COUNT 3.45 x10^6/uL (4.00-5.50)
[2016-05-31 07:00] LABS: PROTHROMBIN TIME 22.2 SEC (10.0-12.8)
[2016-05-31 07:09] LABS: RDW CV 18.2 % (10.0-15.0)
[2016-05-31 07:24] LABS: A/G RATIO 0.89; ALBUMIN 3.1 g/dL (3.4-5.0); BILIRUBIN TOTAL 0.4 mg/dL (0.2-1.0); CALCIUM 8.1 mg/dL (8.5-10.1); CORRECTED CALCIUM 8.82 mg/dL (8.5-10.1); CREATININE 0.9 mg/dL (0.55-1.02); EST CRCL DRUG DOSING (CG) 39.67 mL/min; MAGNESIUM 2.1 mg/dL (1.8-2.4)
--- NOTE | 2016-05-31 08:51 | PN ---
Progress Note for LOGAN HENRY Date: 05/31/2016 Room #: VM.215 SUBJECTIVE: Yesterday afternoon, the patient became somewhat hypotensive and more confused. She was given a 500 mL fluid bolus and seemed to improve her vital signs as well as her alertness. Then last evening, she started to become more agitated, and so she was given some Ativan, which did help her relax and sleep. Her pulse in the afternoon had been in the 80s, and her blood pressure is being lower, so her diltiazem was not increased yesterday, but just left as a b.i.d. dosing. This morning, she is confused. She feels somewhat weak. OBJECTIVE: Vital Signs: Her weight has gone down 0.7 kg from yesterday. Her blood pressure is 142/86, pulse is 110, sats are 98% on 2 L. General: She is resting comfortably. She is pleasantly confused. She picks at her IV site as well as her nasal cannula. Heart: Irregularly irregular. Lungs: Diminished breath sounds at bases, but more clear than yesterday. Abdomen: Soft. Extremities: No edema. Neurologic: Pleasantly confused. LABORATORY DATA: Her hemoglobin has dropped slightly to 8.6, white blood cell count 3.3, platelets are 127 with normal differential. INR is 2.0, sodium was 149, potassium 4.0, creatinine 0.9, GFR 59. Her magnesium is 2.1. LFTs normal. ProBNP is improved to 2478. IMPRESSION: 1. Acute congestive heart failure, which is slowly improving. 2. Increased confusion, suspect advancing of her dementia. 3. Hypoxemia, which has been corrected. 4. Chronic atrial fibrillation. 5. Colon cancer. 6. Anemia of chronic disease. PLAN: We will do a head CT today since her last head CT has not been done since 2013 with her confusion. We will switch her Lasix to 80 in the morning and 60 in the afternoon. We will continue the Ativan p.r.n. for agitation. We will stop her telemetry. She has been fairly stable with her heart rhythm. We will stop her Mtz catheter today. If the patient's behavior stays acceptable today, we would anticipate discharge back to the shelter hopefully tomorrow versus the next day; however, the patient is noted to have severe cardiomegaly and that her CHF will progressively get worse and most likely be the cause of her eventual demise. GM05/31/2016 08:31:45 MODL: 05/31/2016 08:45:13 /[id number]
[2016-05-31] MEDS: Polyethylene Glycol 3350 Powder 17 GM Packet PO SCH (09:25)
[2016-05-31] MEDS: Losartan 50 MG Tab PO SCH (09:26)
[2016-05-31] MEDS: Famotidine 20 MG Tab PO SCH (09:26)
[2016-05-31] MEDS: Cholecalciferol (Vitamin D3) 1,000 Unit Tab PO SCH (09:26)
[2016-05-31] MEDS: Furosemide 80 MG Tab PO SCH (09:26)
[2016-05-31] MEDS: Carvedilol 12.5 MG Tab PO SCH ×2 (09:26→17:47)
[2016-05-31] MEDS: risperiDONE 1 MG Tab PO SCH (09:27)
[2016-05-31] MEDS: Sertraline 50 MG Tab PO SCH (09:27)
[2016-05-31] MEDS: Isosorbide Mononitrate 30 MG Tab.ER PO SCH (09:27)
[2016-05-31] MEDS: Potassium Chloride 20 MEQ Tab.ER PO SCH ×2 (09:27→17:47)
[2016-05-31] MEDS: Loratadine 10 MG Tab PO SCH (09:27)
[2016-05-31] MEDS: Nystatin Crm 30 GM Tube TOP SCH ×2 (09:28→19:56)
[2016-05-31] MEDS: Furosemide 20 MG Tab PO SCH (14:05)
[2016-05-31] MEDS: Melatonin 3 MG Tab PO SCH (19:56)
[2016-05-31] MEDS: Warfarin 2.5 MG Tab PO SCH (19:56)
[2016-05-31] MEDS: Simvastatin 20 MG Tab PO SCH (19:57)
[2016-06-01] MEDS: LORazepam 0.5 MG Tab PO PRN ×3 (01:54→22:01)
[2016-06-01] MEDS: Acetaminophen 325 MG Tab PO PRN ×3 (01:55→22:01)
[2016-06-01 06:56] LABS: BASOPHILS PERCENT AUTO 0.4 % (0.2-1.2); EOSINOPHILS PERCENT AUTO 1.2 % (0.0-4.0); HEMATOCRIT 30.7 % (33.0-47.0); HEMOGLOBIN 8.1 g/dL (12.0-16.0); LYMPHOCYTES PERCENT AUTO 17.7 % (25.0-50.0); MEAN CORPUSCULAR HGB CONC 26.4 g/dL (32.0-36.0); MEAN CORPUSCULAR VOLUME 94.8 fL (78.0-93.0); MONOCYTES PERCENT AUTO 18.5 % (2.0-11.0); NEUTROPHILS PERCENT AUTO 62.2 % (50.0-80.0); RED BLOOD CELL COUNT 3.24 x10^6/uL (4.00-5.50)
[2016-06-01 07:12] LABS: CALCIUM 8.3 mg/dL (8.5-10.1); EST CRCL DRUG DOSING (CG) 35.7 mL/min
[2016-06-01 07:28] LABS: INR 2.3 (2.0-3.5); PROTHROMBIN TIME 25.6 SEC (10.0-12.8)
[2016-06-01] MEDS: Cholecalciferol (Vitamin D3) 1,000 Unit Tab PO SCH (07:37)
[2016-06-01] MEDS: risperiDONE 1 MG Tab PO SCH (07:37)
[2016-06-01] MEDS: Polyethylene Glycol 3350 Powder 17 GM Packet PO SCH (07:37)
[2016-06-01] MEDS: Famotidine 20 MG Tab PO SCH (07:38)
[2016-06-01] MEDS: Sertraline 50 MG Tab PO SCH (07:38)
[2016-06-01] MEDS: Losartan 50 MG Tab PO SCH (07:38)
[2016-06-01] MEDS: Furosemide 80 MG Tab PO SCH (07:38)
[2016-06-01] MEDS: Isosorbide Mononitrate 30 MG Tab.ER PO SCH (07:38)
[2016-06-01] MEDS: Loratadine 10 MG Tab PO SCH (07:38)
[2016-06-01] MEDS: Carvedilol 12.5 MG Tab PO SCH ×2 (07:38→19:29)
[2016-06-01] MEDS: Potassium Chloride 20 MEQ Tab.ER PO SCH ×2 (07:38→19:28)
[2016-06-01] MEDS: Nystatin Crm 30 GM Tube TOP SCH ×2 (07:45→19:31)
[2016-06-01] MEDS ORDERED: Furosemide 20 MG/2 ML VIAL IVPUSH ONE (08:23)
--- NOTE | 2016-06-01 09:39 | PN ---
Progress Note for LOGAN HENRY Date: 06/01/2016 Room #: VM.215 SUBJECTIVE: The patient is noted to be restless and confused last night. She did require 4 doses of lorazepam yesterday to help with her confusion. The patient did have her Mtz removed yesterday as well as she is off telemetry. She has been voiding okay. OBJECTIVE: Vital Signs: Her weight is down a total of 3 kg since admission. Her weight today is 78.4, temperature is 36.8, pulse 84, blood pressure is 120/63, respiratory rate 18, sats are 95%. Skin: Pale. Heart: Irregularly irregular. Lungs: Have diminished breath sounds. Abdomen: Soft. The patient initially was somewhat sleepy, hard to arouse, and she did become more awake and is hard to redirect. LABORATORY DATA: Today, her white blood cell count is 2.5 which is a slight drop, her hemoglobin dropped down to 8.1, platelets are 115, her segs are 62, lymphocytes 17. Her INR is 2.3. Sodium was up to 152, potassium 4.2, creatinine 1.0, GFR is 52. Her proBNP yesterday had improved to 2400. IMPRESSION: 1. Acute exacerbation of congestive heart failure. 2. Hypoxemia. 3. Anemia of chronic disease with worsening, affecting her conditions. 4. Hypernatremia which is new. 5. Chronic kidney disease. 6. Colon cancer. PLAN: I do feel the patient should be transfused today because of her heart failure deconditioning continued drop of hemoglobin over the last few days and then she will be given 1 dose of Lasix 10 mg IV after transfusion and then will be able to send her back to [facility]. I do want to reduce the dose of lorazepam to 0.25 mg just to not oversedate the patient. I do feel with her severe cardiomyopathy, this is progressively worsening and most likely will be the cause of her eventual demise and with her dementia, it would not be appropriate to involve Cardiology for consult as well as for her age. GM06/01/2016 08:39:51 MODL: 06/01/2016 08:57:14 /[id number]
[2016-06-01] MEDS ORDERED: Albuterol/Ipratropium 3.0-0.5 MG/3 ML Neb Soln NEB PRN (12:00)
[2016-06-01] MEDS: Furosemide 20 MG Tab PO SCH (16:21)
--- NOTE | 2016-06-01 17:24 | PCM.SN ---
- Free Text/Narrative Note: Late morning pt became hypotensive with BP 78/48. Her po lasix was held until her transfusion was given. IV lasix order was cancelled Her discharge was cancelled for today. She improved mentation after transfuaion and BP improved to 120/70. Will recheck lab tomorrow am and hope to transfer her to [facility].
[2016-06-01] MEDS: Melatonin 3 MG Tab PO SCH (19:29)
[2016-06-01] MEDS: Simvastatin 20 MG Tab PO SCH (19:30)
[2016-06-01] MEDS: Warfarin 2.5 MG Tab PO SCH (19:30)
[2016-06-02] MEDS: LORazepam 0.5 MG Tab PO PRN (02:34)
[2016-06-02] MEDS: Acetaminophen 325 MG Tab PO PRN (02:35)
--- NOTE | 2016-06-02 03:21 | DISCH ---
PRIMARY DIAGNOSES: 1. Acute exacerbation of chronic diastolic congestive heart failure. 2. Severe cardiomyopathy. 3. Hypoxemia, multifactorial. 4. Worsening of anemia of chronic disease. 5. Increased confusion, multifactorial. 6. Chronic atrial fibrillation. 7. History of colon cancer. 8. Hypernatremia. 9. Alzheimer's dementia with behavior problems. 10.Chronic depression. 11.Gastroesophageal reflux disease. 12.Yeast dermatitis. SUMMARY OF H AND P: The patient is an 89-year-old female, who was brought to the emergency room because of problems with low oxygen levels at 69% with feeling short of breath on 05/29/16. The patient has been slowly declining with health with more heart failure, confusion. She is chronically on oxygen. Her oxygen may have been displaced. She denied any chest pain. When the patient was seen at the emergency room, her oxygen sats were up to 95% on 3 L. Her blood pressure was high at 172/114, respirations 24, pulse 102, temperature 36.8. Her chest x- ray showed severe cardiomegaly but there were some effusions present. She is pleasantly confused. SUMMARY OF HOSPITAL COURSE: Patient received IV diuresis with Lasix. Her behavior was monitored. She was noted to be quite agitated several times. She was started on lorazepam to help with comfort. The patient's family members had indicated they did not want noninvasive ventilatory support such as BiPAP or CPAP. The patient was DNR/DNI measures. Patient had diuresed 3 kg while here. Her other laboratory data on admission showed that her white blood cell count is 3.3, hemoglobin 8.9, platelets 154, INR 1.8, D-dimer 0.25 which was normal. Venous blood gases were obtained which showed pH 7.38, pCO2 58, PO2 28, bicarb 35, sats 50. Her sodium is 149, potassium was 4.0, creatinine 1.1, glucose 108. LFTs are normal. CK was 26 which is normal. CK index 2.7. Troponin less than 0.017. CRP 0.7, proBNP was 2633. The patient was noted to be pleasantly confused. A urinalysis was obtained which was negative for bladder infection. Her chest x-ray was followed which showed improvement of CHF, there was not a large amount. To note, her INR came back up to 2.1 and her medicines were left the same. It was noted that the patient did have a hemoglobin dropped down to 8.1 and with more confusion with CHF, it was felt this was asymptomatic and should be transfused with 1 unit of packed RBCs. Her white blood cell count had dropped down to 2.5 by 06/01/2016. Platelets are 115. Her sodium had gone up to 152. She is drinking fluids adequately. Her potassium was 4.2 on 06/01/2016, creatinine 1.0, GFR 52. The patient was felt to be back at her baseline and able to be transferred back to the assisted after transfusion was given. See addendum below. She will be discharged on 06/02/2016. DISCHARGE MEDICATIONS: Her medications at the time of transfer will be: 1. Tylenol 650 q.4 hours p.r.n. 2. DuoNeb. 3. Lasix 60 mg in the morning, 60 mg in the afternoon which was a change. 4. Albuterol 3 mL q.4 hours p.r.n. 5. Bisacodyl 5 mg daily p.r.n. constipation, 10 mg suppository daily p.r.n. constipation. 6. Carvedilol 37.5 mg 1 p.o. b.i.d. 7. Cholecalciferol 2000 units daily. 8. Diltiazem 30 mg b.i.d. 9. Docusate with senna 1 pill twice a day. 10.Pepcid 20 mg 1 pill daily. 11.Isosorbide mononitrate 60 mg daily. 12.Lorazepam dose was reduced at discharge to 0.25 mg q.4 hours p.r.n. agitation. 13.Loratadine 10 mg 1 pill daily. 14.Losartan 100 mg 1 pill daily. 15.Milk of magnesia 30 mL daily p.r.n. constipation. 16.Melatonin 3 mg at bedtime. 17.Nystatin 15 g b.i.d. p.r.n. 18.MiraLAX 17 g daily. 19.Potassium chloride 40 mEq b.i.d. 20.Zoloft 50 mg daily. 21.Simvastatin 20 mg 1 at bedtime. 22.Warfarin will be 2.5 mg on Sunday, Sunday, Sunday, , Sunday, Sunday and 1.25 mg every Sunday. 23.Risperdal 1 mg daily. Patient should have an INR done on 06/05/2016 and managed by the [facility] for [place]. The patient will also need lab work done on 06/05/2016 of a basic metabolic profile and proBNP for CHF and a CBC for anemia. Her last echocardiogram was unknown present time. The patient's status has continued to decline and may now be the point of needing hospice care to just keep her comfortable as we are not going to reverse her heart. To note, her heart rhythm was a little tachy when she 1st was admitted in contemplation of increasing her dose of diltiazem; however, blood pressure had dropped and she did require some IV bolus of 250 mL to improve with some hypotension she was exhibiting. The patient has followed with Dr. Vo for her colon cancer which has been stable. She did have a head CT done because of her continued confusion and just showed microvascular changes with atrophy. The patient's condition is poor at discharge and I do anticipate her to in the next several months of her current health problems. GM06/01/2016 08:54:54 MODL: 06/02/2016 03:13:12 /[id number] Addendum: Pt became more hypotensive on late morning of 06/01/16, so her discharge was postponed until 06/02/2016. She received her transfusion with no problems, and only recieved her regular po dose of lasix afterwards. On morning off 06/02/16 her BP was lower, so her lasix was reduced to 60 mg bid. Her Hemoglobbin had improved to 9.5. Her sodium is still running at 152.She will go to [facility] today. G/ 06/02/2016 08:30. SAFIAD
[2016-06-02 06:42] LABS: BASOPHILS PERCENT AUTO 0.5 % (0.2-1.2); HEMATOCRIT 35.7 % (33.0-47.0); HEMOGLOBIN 9.6 g/dL (12.0-16.0); LYMPHOCYTES PERCENT AUTO 14.7 % (25.0-50.0); MEAN CORPUSCULAR HEMOGLOBIN 25.3 pg (26.0-32.0); MEAN CORPUSCULAR HGB CONC 26.9 g/dL (32.0-36.0); MEAN CORPUSCULAR VOLUME 93.9 fL (78.0-93.0); NEUTROPHILS PERCENT AUTO 68.8 % (50.0-80.0)
[2016-06-02 06:53] LABS: INR 2.7 (2.0-3.5); PROTHROMBIN TIME 30.4 SEC (10.0-12.8)
[2016-06-02 06:54] LABS: CALCIUM 8.5 mg/dL (8.5-10.1); CREATININE 1.2 mg/dL (0.55-1.02); EST CRCL DRUG DOSING (CG) 29.75 mL/min
[2016-06-02 07:00] LABS: RDW CV 17.9 % (10.0-15.0)
[2016-06-02] MEDS ORDERED: Furosemide 20 MG Tab PO SCH ×2 (08:10→14:00)
[2016-06-02] MEDS: Loratadine 10 MG Tab PO SCH (08:21)
[2016-06-02] MEDS: Carvedilol 12.5 MG Tab PO SCH (08:21)
[2016-06-02] MEDS: Losartan 50 MG Tab PO SCH (08:21)
[2016-06-02] MEDS: Isosorbide Mononitrate 30 MG Tab.ER PO SCH (08:22)
[2016-06-02] MEDS: Famotidine 20 MG Tab PO SCH (08:22)
[2016-06-02] MEDS: Sertraline 50 MG Tab PO SCH (08:22)
[2016-06-02] MEDS: Potassium Chloride 20 MEQ Tab.ER PO SCH (08:22)
[2016-06-02] MEDS: Cholecalciferol (Vitamin D3) 1,000 Unit Tab PO SCH (08:22)
[2016-06-02] MEDS: risperiDONE 1 MG Tab PO SCH (08:22)
[2016-06-02] MEDS: Nystatin Crm 30 GM Tube TOP SCH (08:23)
[2016-06-02] MEDS: Polyethylene Glycol 3350 Powder 17 GM Packet PO SCH (08:24)
[2016-06-02] MEDS: Furosemide 80 MG Tab PO SCH (08:43)
--- NOTE | 2016-06-02 09:08 | PN ---
Progress Note for LOGAN HENRY Date: 06/02/2016 Room #: VM.215 SUBJECTIVE: The patient became more hypotensive late yesterday morning, so her discharge was canceled. She received her blood transfusion which went well. She did not require any IV Lasix afterwards but just at her usual dose of p.o. Lasix. She was noted to be somewhat agitated again last evening and did receive some Ativan this morning. She is noted to be tired and sleepy but does arouse. OBJECTIVE: Vital Signs: Her weight is not recorded yet today. Her temperature is 36.8, blood pressure is 116/81, sats are 98 on 2 L which is her baseline. Her pulse is 91. Skin: [place], warm, and dry. Heart: Regular rate and rhythm. Lungs: Clear. Abdomen: Soft. Psychiatric: The patient is pleasantly confused. LABORATORY DATA: Her lab shows her white blood cell count up to 4.0, hemoglobin 9.6, platelets 127. Her INR is 2.7. Sodium stayed the same at 152, potassium is 4.1, creatinine 1.2. GFR is 42, slight drop. IMPRESSION: 1. Exacerbation of congestive heart failure, stable. 2. Anemia, multifactorial, status post transfusion. 3. Hypernatremia, stable. 4. Cardiomegaly. PLAN: The patient will be reduced on her p.o. Lasix to 60 b.i.d. and we will have her be transferred or discharged to [facility]. The patient's prognosis is somewhat guarded due to her worsening CHF and dementia that is progressive. GM06/02/2016 08:31:51 MODL: 06/02/2016 09:01:41 /[id number]
[2016-06-02 09:13] VITALS: BP 97/58
== END 2016-06-02 10:05 | DRG 292 ==
LOC: VM.MS 08:50
PROVIDERS: ADMIT Family Medicine; ATTEND Family Medicine
DX: I50.33 Acute on chronic diastolic (congestive) heart failure (principal); E87.0 Hyperosmolality and hypernatremia; K21.9 Gastro-esophageal reflux disease without esophagitis; G30.9 Alzheimer's disease, unspecified; F02.80 Dementia in other diseases classified elsewhere, unspecified severity, without behavioral disturbance, psychotic disturbance, mood disturbance, and anxiety; F41.8 Other specified anxiety disorders; D50.9 Iron deficiency anemia, unspecified; I48.91 Unspecified atrial fibrillation; R41.0 Disorientation, unspecified; I10 Essential (primary) hypertension; Z86.711 Personal history of pulmonary embolism; E78.5 Hyperlipidemia, unspecified; B37.2 Candidiasis of skin and nail; Z79.01 Long term (current) use of anticoagulants
CPT/HCPCS: 36415; 36430; 70460; 71010; 80048; 80053; 81001; 83735; 83880; 85025; 85610; 86850; 86900; 86901; 86920; 86922; 93005; 94760; A9270-GY; J1940; J7040; J7050; P9016